=== PATIENT | male | born 1975 | race African-American/Black ===

== ENCOUNTER 2018-10-30 11:44 | Emergency (ER) | payer OTHER ==
[~2018-10-30] VITALS: Ht 188 cm; Wt 100.9 kg
[2018-10-30 11:52] VITALS: BP 155/94
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
== END 2018-10-30 12:41 | disposition home or self-care (01) ==
LOC: ER 11:44
DX: S13.4XXA Sprain of ligaments of cervical spine, initial encounter (principal); V43.52XA Car driver injured in collision with other type car in traffic accident, initial encounter; Y93.I9 Activity, other involving external motion; Y92.89 Other specified places as the place of occurrence of the external cause; Y99.8 Other external cause status
CPT/HCPCS: 72040; 99284